=== PATIENT | male | born 1960 | race Caucasian/White ===

== ENCOUNTER 2024-06-05 09:06 | Emergency (ER) | payer MEDICAID ==
[~2024-06-05] VITALS: Ht 185.4 cm; Wt 102.1 kg
[2024-06-05 09:59] LABS: RAPID GROUP A STREP negative (NEGATIVE)
--- NOTE | 2024-06-05 10:00 | HMCIMG ---
CHEST 1VW REASON: cough COMPARISON: None. FINDINGS: Single view of the chest was obtained. Lungs are clear. Heart size is normal. There is no pulmonary vascular congestion. Mediastinum and bony thorax appear unremarkable. IMPRESSION: 1. Normal single view chest x-ray.
--- NOTE | 2024-06-05 10:05 | EKG ---
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
[2024-06-05 10:09] LABS: COVID19 (SARS ANTIGEN RAPID) PRESUMPTIVE NEGATIVE (NEGATIVE); INFLUENZA TYPE A Negative For Type A (NEGATIVE); INFLUENZA TYPE B Negative For Type B (NEGATIVE)
--- NOTE | 2024-06-05 10:15 | ERN ---
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 Patient reports congestion, green phlegm, body aches, but denies any other associated symptoms at this time. As per patient he has been using DayQuil, NyQuil, Tylenol without any relief. Allergies: Coded Allergies: clindamycin (Unverified Allergy, Unknown, 06/05/24) Home Meds Active Scripts Albuterol Sulfate (Ventolin Hfa/Proventil Hfa/Proair Hfa) 90 Mcg Puff, 1 PUFF IH Q4H PRN for SHORTNESS OF BREATH for 5 Days, #1 INH 0 Refills PHARMACY TO DISPENSE 1 INHALER FOR USE Prov:SULY WALTERS MD 06/05/24 Prednisone (Prednisone) 20 Mg Tablet, 20 MG PO DAILY for 5 Days, #5 TAB Prov:SULY WALTERS MD 06/05/24 Azithromycin (Zithromax Tri-Neil) 500 Mg Tablet, 1 TAB PO DAILY for 3 Days, #3 TAB 0 Refills Prov:SULY WALTERS MD 06/05/24 Past Medical History Past Medical History: No Pertinent History Additional Past Medical Hx: PE Surgical History: Other Surgical History Other: SHOULDER SX, FOOT SX Review of System Dictation Constitutional: Positive for body Negative for fever,chills, and weight loss Eyes: Negative for injury, pain,redness, and discharge ENT: Positive for congestion Negative for injury,pain or swelling Cardiovascular: Negative for chest pain, palpitations, and edema Respiratory: Positive for cough, green phlegm Negative for shortness of breath and wheezing, Abdomen/GI: Negative for abdominal pain, nausea, vomiting, diarrhea, and constipation Back: Negative for injury and pain : Negative for injury, bleeding and discharge MS/Extremity: Negative for injury and deformity Skin: Negative for rash, and discoloration Neuro: Negative for headache, weakness, numbness, tingling, and seizure Psych: Negative for suicide ideation, homicidal ideation, and hallucinations Initial Vital Sign VS Vital Signs Date Time Temp Pulse Resp B/P (MAP) Pulse Ox O2 Delivery O2 Flow Rate FiO2 12/30/24 09:08 98.4 67 20 117/75 97 Room Air 0 06/05/24 09:16 21 Physical Exam Dictation General: awake, alert, NAD Head/Face: Normocephalic, atraumatic Eyes: PERRL, EOMI, vision at baseline ENT: oral cavity clear, TMs clear, no signs of infection Neck: Trachea midline, supple, no nuchal rigidity Cardiovascular: RRR, normal S1/S2, No MRGs, no JVD Respiratory: CTAB, no respiratory distress, No rales or wheezes Abdomen: Soft, non-tender, non-distended, normal bowel sounds, no guarding or rebound. Skin: Warm, dry, normal turgor, no rash MS/Extremity: Pulses equal, no cyanosis, neurovascular intact, FROM Neuro: COAx4, GCS 15, strength 5/5, CN 2-12 intact, normal cerebellar exam, normal gait, Psych: Normal behavior, mood, and affect normal Results (Laboratory/Radiology) Laboratory/Radiology Laboratory Tests Test 06/05/24 09:40 06/05/24 10:15 Influenza Type A Antigen Negative For Type A Influenza Type B Antigen Negative For Type B SARS-CoV-2 Antigen (Rapid) PRESUMPTIVE NEGATIVE Group A Streptococcus Rapid negative (NEGATIVE) White Blood Count 12.3 K/uL (4.8-10.8) H Red Blood Count 4.94 MIL/uL (4.50-6.20) Hemoglobin 15.6 g/dL (14.0-18.0) Hematocrit 44.0 % (42-54) Mean Corpuscular Volume 89.1 fL (79-99) Mean Corpuscular Hemoglobin 31.6 pg (27.0-33.0) Mean Corpuscular Hemoglobin Concent 35.5 g/dL (32.0-36.0) Red Cell Distribution Width 12.5 % (11.0-15.5) Platelet Count 253 K/uL (130-400) Mean Platelet Volume 9.0 fL (7.5-10.5) Immature Granulocyte % (Auto) 0.6 % (0-1) Neutrophils (%) (Auto) 76.9 % (40.0-77.0) Lymphocytes (%) (Auto) 12.2 % (21.0-51.0) L Monocytes (%) (Auto) 9.8 % (3.0-13.0) Eosinophils (%) (Auto) 0.2 % (0.0-8.0) Basophils (%) (Auto) 0.3 % (0.0-5.0) Neutrophils # (Auto) 9.4 K/uL (1.8-7.7) H Lymphocytes # (Auto) 1.5 K/uL (1.0-4.8) Monocytes # (Auto) 1.2 K/uL (0.1-1.0) H Eosinophils # (Auto) 0.03 K/uL (0.00-0.70) Basophils # (Auto) 0.04 K/uL (0.00-0.20) Absolute Immature Granulocyte (auto 0.07 K/uL (0-1) Nucleated Red Blood Cells 0.0 % (0.0-0.19) D-Dimer Quantitative (PE/DVT) 350 ng/mL (0-500) Sodium Level 141 mmol/L (136-145) Potassium Level 4.2 mmol/L (3.5-5.1) Chloride Level 104 mmol/L (101-111) Carbon Dioxide Level 28 mmol/L (21-32) Blood Urea Nitrogen 18 mg/dL (7-18) Creatinine 1.2 mg/dL (0.5-1.3) Glomerular Filtration Rate Calc 68 mL/min (>90) Random Glucose 110 mg/dL (70-105) H Total Calcium 9.3 mg/dL (8.5-10.1) Troponin I High Sensitivity < 4 ng/L (4-75) L B-Type Natriuretic Peptide 57 pg/mL (0-100) Labs Reviewed?: Yes EKG Comment: EKG 06/05/2024 time 9:56 a.m. ventricular rate 63, NV 175, QRS D 103, QT 387. Sinus rhythm, right axis deviation. No STEMI ED Course ED Course Orders Procedure Category Date Status Time Influenza Type A & B, LAB 06/05/24 Complete Rapid 09:33 Chest 1vw RAD 06/05/24 Resulted 09:33 12 Lead Ekg Tracing- EKG 06/05/24 Complete Technical 09:33 Covid19 (Sars Antigen LAB 06/05/24 Complete Rapid) 09:33 Rapid (Group A Strep) LAB 06/05/24 Complete 09:33 D-Dimer LAB 06/05/24 Complete 10:00 Cbc With Differential LAB 06/05/24 Complete 10:00 B-Type Natriuretic LAB 06/05/24 Complete Peptide 10:00 Basic Metabolic Panel LAB 06/05/24 Complete 10:00 Troponin I High LAB 06/05/24 Complete Sensitivity 10:00 Ipratropium/Albuterol PHA 06/05/24 Complete Neb (Duoneb) 10:00 Dexamethasone 4mg/Ml PHA 06/05/24 Complete 1ml Vial (Dexametha 10:00 0.9% Nacl 500ml PHA 06/05/24 Complete Iv.Soln (Ns 500ml 10:30 Current Medications Medications (Trade) Dose Ordered Sig/Kimberley Route PRN Reason Start Time Stop Time Status Last Admin Dose Admin Albuterol (DUOneb) 1 udvial ONCE ONCE IH 06/05/24 10:00 06/05/24 10:02 DC 06/05/24 10:42 Dexamethasone Sodium Phosphate (dexaMETHasone 4MG/ML 1ML VIAL) 10 mg ONCE ONCE IV 06/05/24 10:00 06/05/24 10:02 DC 06/05/24 10:45 Sodium Chloride 500 ml @ 0 mls/hr ONCE ONCE IV 06/05/24 10:30 06/05/24 10:31 DC 06/05/24 10:45 Vital Signs Date Time Temp Pulse Resp B/P (MAP) Pulse Ox O2 Delivery O2 Flow Rate FiO2 06/05/24 11:30 98.4 73 20 122/75 97 Room Air* 0 21 06/05/24 10:45 80 20 06/05/24 09:16 98.4 67 20 117/75 97 Room Air* 0 06/05/24 09:08 98.4 67 20 117/75 97 Room Air 0 Medical Decision Making MDM MDM: Differential diagnosis: Cough, pneumonia, bronchitis Previous outside records reviewed: Old ER visits. Need for hospitalization: Patient does not meet criteria for hospitalization. Need for emergency major/minor surgery: No Patient's prior external medical records from other ER visits were reviewed by me as indicated. Prior testing and results from previous visits were reviewed. Prior tests were taken into account with medical decision making and resource utilization, independent historian/historians were used to obtain complete [facility] history. I independently interpreted the test that were performed, results were reviewed by me and considered findings on radiology if ordered. Medical management and examination interpretation discussions were had by me with other qualified healthcare professionals as indicated for the patient's care. DX & DISP Disposition: Discharge Departure Impression: Primary Impression: Acute bronchitis Condition: Stable Scripts Albuterol Sulfate (Ventolin Hfa/Proventil Hfa/Proair Hfa) 90 Mcg Puff 1 PUFF IH Q4H PRN for SHORTNESS OF BREATH for 5 Days, #1 INH 0 Refills PHARMACY TO DISPENSE 1 INHALER FOR USE Prov: SULY WALTERS MD 06/05/24 Prednisone (Prednisone) 20 Mg Tablet 20 MG PO DAILY for 5 Days, #5 TAB Prov: SULY WALTERS MD 06/05/24 Azithromycin (Zithromax Tri-Neil) 500 Mg Tablet 1 TAB PO DAILY for 3 Days, #3 TAB 0 Refills Prov: SULY WALTERS MD 06/05/24 Referrals: SELF,REFERRAL (PCP) Time of Disposition: 11:32 I have reviewed, & agreed with my scribe's, documentation. (Entered by Arti Broderick, acting as a scribe for Dr. Walters) SULY WALTERS MD Jun 05, 2024 10:14
[2024-06-05] MEDS: IpraTROPium/alBUTERol SULFATE 3 ML SOLUTION IH ONE (10:42)
[2024-06-05 10:45] VITALS: PULSE 80; RESP 20
[2024-06-05 10:45] LABS: BASOPHILS # (AUTO) 0.04 K/uL (0.00-0.20); BASOPHILS % (AUTO) 0.3 % (0.0-5.0); EOSINOPHILS # (AUTO) 0.03 K/uL (0.00-0.70); EOSINOPHILS % (AUTO) 0.2 % (0.0-8.0); IMMATURE GRANULOCYTE ABSOLUTE 0.07 K/uL (0-1); LYMPHOCYTES # (AUTO) 1.5 K/uL (1.0-4.8); LYMPHOCYTES % (AUTO) 12.2 % (21.0-51.0); MEAN CORPUSCULAR HEMOGLOBIN 31.6 pg (27.0-33.0); MEAN CORPUSCULAR HGB CONC 35.5 g/dL (32.0-36.0); MEAN CORPUSCULAR VOLUME 89.1 fL (79-99); MONOCYTES # (AUTO) 1.2 K/uL (0.1-1.0); MONOCYTES % (AUTO) 9.8 % (3.0-13.0); NEUTROPHILS # (AUTO) 9.4 K/uL (1.8-7.7); NEUTROPHILS % (AUTO) 76.9 % (40.0-77.0); PLATELET COUNT (AUTO) 253 K/uL (130-400); RED BLOOD CELL COUNT(AUTO) 4.94 MIL/uL (4.50-6.20); RED CELL DISTRIBUTION WIDTH 12.5 % (11.0-15.5); WHITE BLOOD COUNT (AUTO) 12.3 K/uL (4.8-10.8)
[2024-06-05] MEDS: dexaMETHasone SOD PHOSPHATE 4 MG/ML 1ML VIAL IV ONE (10:45)
[2024-06-05] MEDS: 0.9% NACL 500ML IV.SOLN 500 ML IV ONE (10:45)
[2024-06-05 10:52] LABS: CREATININE 1.2 mg/dL (0.5-1.3); POTASSIUM 4.2 mmol/L (3.5-5.1)
[2024-06-05 11:30] VITALS: BP 122/75; PULSE 73; RESP 20; TEMP 98.4; O2SAT 97
[2024-06-05] MEDS ORDERED: ALBUHFA IH (11:37)
[2024-06-05] MEDS ORDERED: PRED20TA3 PO (11:37)
[2024-06-05] MEDS ORDERED: AZIT500T2 PO (11:37)
[2024-06-05 11:40] LABS: B-TYPE NATRIURETIC PEPTIDE 57 pg/mL (0-100)
== END 2024-06-05 11:59 | disposition home or self-care (01) ==
LOC: EDH 09:06
DX: J20.9 Acute bronchitis, unspecified (principal); Z79.52 Long term (current) use of systemic steroids; Z86.711 Personal history of pulmonary embolism; Z88.1 Allergy status to other antibiotic agents; Z20.822 Contact with and (suspected) exposure to COVID-19
CPT/HCPCS: 99285; 96374; 71045; 96361; 87426; 84484; 80048; 83880; 85025; 85378; 87880; 87804 ×2; 36415; 93005; 94640; J1100; J7040